=== PATIENT | male | born 1945 | race Caucasian/White ===

== ENCOUNTER 2019-06-25 16:26 | Emergency (ER) | payer MEDICARE ==
[2019-06-25 16:34] VITALS: RESP 18
[2019-06-25 16:44] LABS: Glucose,Whole Blood 128 mg/dL (75-99)
[2019-06-25 16:59] LABS: Basophils # (A) 0.1 k/uL (0-0.2); Basophils % (A) 1 %; Eosinophils # (A) 0.2 k/uL (0-0.7); Eosinophils % (A) 3 %; HCT 41.6 % (39.0-53.0); Lymphocytes # (A) 1.8 k/uL (1.0-4.8); Lymphocytes % (A) 25 %; MCH 31.6 pg (25.0-35.0); MCHC 33.8 g/dL (31.0-37.0); MCV 93.7 fL (80.0-100.0); Mean Platelet Volume 7.8; Monocytes # (A) 0.4 k/uL (0-1.0); Monocytes % (A) 5 %; Neutrophils # (A) 4.4 k/uL (1.3-7.7); Neutrophils % (A) 63 %; Platelet Count 228 k/uL (150-450); RBC 4.44 m/uL (4.30-5.90)
[2019-06-25] MEDS ORDERED: CLOPIDOGREL 75 MG TAB PO STA (17:02)
[2019-06-25] MEDS ORDERED: ASPIRIN 325 MG TAB PO STA (17:02)
--- NOTE | 2019-06-25 17:02 | ED ---
Neuro HPI - General Chief Complaint: Neuro Symptoms/Deficit Stated Complaint: Neuro Sx Time Seen by Provider: 06/25/19 16:35 Source: patient Mode of arrival: ambulatory Limitations: no limitations - History of Present Illness Is the patient presenting with stroke symptoms?: Yes Initial Comments: The patient is a 73-year-old male who presents to the emergency room with reported left leg weakness which started around 3:30 PM. He states he noticed sudden onset of left lower extremity weakness. reports that he was slow to respond. They called a daughter's friend who is a neurologist and recommended that the patient come into the emergency department if she was concerned that he was having a stroke. The patient states that his symptoms completely resolved upon transfer to the hospital. The patient was walking into the ambulance bay when EMS saw them. EMS reports that the patient was ataxic. They assisted him into bed 1. The patient reports that he is completely asymptomatic at this time. He denies any visual changes, slurred speech, facial droop, upper or lower extremity weakness at this time. No history of CVA or TIA in the past. The patient is not on any anticoagulation. He denies any neck pain or stiffness. No fevers or chills. Denies any sick contacts or recent travel. No recent blunt head trauma. There are no other alleviating, precipitating or modifying factors - Related Data Home Medications: Home Medications Medication Instructions Recorded Confirmed Holistic Cardiac 1 tab PO DAILY 06/25/19 06/25/19 Supplement(Unknown) Allergies/Adverse Reactions: Allergies Allergy/AdvReac Type Severity Reaction Status Date / Time No Known Allergies Allergy Unverified 06/25/19 16:44 Review of Systems ROS Statement: Those systems with pertinent positive or pertinent negative responses have been documented in the HPI. ROS Other: All systems not noted in ROS Statement are negative. General Exam Limitations: no limitations General appearance: alert, in no apparent distress Head exam: Present: atraumatic, normocephalic, normal inspection Eye exam: Present: normal appearance, PERRL, EOMI. Absent: scleral icterus, c onjunctival injection, periorbital swelling ENT exam: Present: normal exam, mucous membranes moist Neck exam: Present: normal inspection. Absent: tenderness, meningismus, lymphadenopathy Respiratory exam: Present: normal lung sounds bilaterally. Absent: respiratory distress, wheezes, rales, rhonchi, stridor Cardiovascular Exam: Present: regular rate, normal rhythm, normal heart sounds. Absent: systolic murmur, diastolic murmur, rubs, gallop, clicks GI/Abdominal exam: Present: soft, normal bowel sounds. Absent: distended, tenderness, guarding, rebound, rigid Extremities exam: Present: normal inspection, full ROM, normal capillary refill. Absent: tenderness, pedal edema, joint swelling, calf tenderness Back exam: Present: normal inspection Neurological exam: Present: alert, oriented X3, CN II-XII intact, other (The patient has 5 out of 5 muscle strength in his bilateral upper and lower extremities. No facial droop, slurred speech or confusion. Finger to nose is symmetric bilaterally. Heel to rob is symmetric bilaterally.) Psychiatric exam: Present: normal affect, normal mood Skin exam: Present: warm, dry, intact, normal color. Absent: rash Stroke MDM - Lab Data Result diagrams: 06/25/19 16:45 06/25/19 16:45 Lab Results 06/25/19 06/25/19 06/25/19 Range/Units 16:32 16:45 16:45 WBC 7.0 (3.8-10.6) k/uL RBC 4.44 (4.30-5.90) m/uL Hgb 14.0 (13.0-17.5) gm/dL Hct 41.6 (39.0-53.0) % MCV 93.7 (80.0-100.0) fL MCH 31.6 (25.0-35.0) pg MCHC 33.8 (31.0-37.0) g/dL RDW 15.0 (11.5-15.5) % Plt Count 228 (150-450) k/uL Neutrophils % 63 % Lymphocytes % 25 % Monocytes % 5 % Eosinophils % 3 % Basophils % 1 % Neutrophils # 4.4 (1.3-7.7) k/uL Lymphocytes # 1.8 (1.0-4.8) k/uL Monocytes # 0.4 (0-1.0) k/uL Eosinophils # 0.2 (0-0.7) k/uL Basophils # 0.1 (0-0.2) k/uL PT (9.0-12.0) sec INR (<1.2) APTT (22.0-30.0) sec Sodium 141 (137-145) mmol/L Potassium 4.5 (3.5-5.1) mmol/L Chloride 110 H (98-107) mmol/L Carbon Dioxide 20 L (22-30) mmol/L Anion Gap 11 mmol/L BUN 17 (9-20) mg/dL Creatinine 0.89 (0.66-1.25) mg/dL Est GFR (CKD-EPI)AfAm >90 (>60 ml/min/1.73 sqM) Est GFR (CKD-EPI)NonAf 85 (>60 ml/min/1.73 sqM) Glucose 120 H (74-99) mg/dL POC Glucose (mg/dL) 128 H (75-99) mg/dL POC Glu Refrigerator Repair Technician ID Betito Weston Calcium 9.2 (8.4-10.2) mg/dL Total Bilirubin 0.3 (0.2-1.3) mg/dL AST 26 (17-59) U/L ALT 27 (21-72) U/L Alkaline Phosphatase 54 (38-126) U/L Total Creatine Kinase (55-170) U/L CK-MB (CK-2) (0.0-2.4) ng/mL CK-MB (CK-2) Rel Index Troponin I (0.000-0.034) ng/mL Total Protein 7.0 (6.3-8.2) g/dL Albumin 4.3 (3.5-5.0) g/dL 06/25/19 06/25/19 Range/Units 16:45 16:45 WBC (3.8-10.6) k/uL RBC (4.30-5.90) m/uL Hgb (13.0-17.5) gm/dL Hct (39.0-53.0) % MCV (80.0-100.0) fL MCH (25.0-35.0) pg MCHC (31.0-37.0) g/dL RDW (11.5-15.5) % Plt Count (150-450) k/uL Neutrophils % % Lymphocytes % % Monocytes % % Eosinophils % % Basophils % % Neutrophils # (1.3-7.7) k/uL Lymphocytes # (1.0-4.8) k/uL Monocytes # (0-1.0) k/uL Eosinophils # (0-0.7) k/uL Basophils # (0-0.2) k/uL PT 9.5 (9.0-12.0) sec INR 0.9 (<1.2) APTT 22.4 (22.0-30.0) sec Sodium (137-145) mmol/L Potassium (3.5-5.1) mmol/L Chloride (98-107) mmol/L Carbon Dioxide (22-30) mmol/L Anion Gap mmol/L BUN (9-20) mg/dL Creatinine (0.66-1.25) mg/dL Est GFR (CKD-EPI)AfAm (>60 ml/min/1.73 sqM) Est GFR (CKD-EPI)NonAf (>60 ml/min/1.73 sqM) Glucose (74-99) mg/dL POC Glucose (mg/dL) (75-99) mg/dL POC Glu Refrigerator Repair Technician ID Calcium (8.4-10.2) mg/dL Total Bilirubin (0.2-1.3) mg/dL AST (17-59) U/L ALT (21-72) U/L Alkaline Phosphatase (38-126) U/L Total Creatine Kinase 207 H (55-170) U/L CK-MB (CK-2) 2.4 (0.0-2.4) ng/mL CK-MB (CK-2) Rel Index 1.2 Troponin I <0.012 (0.000-0.034) ng/mL Total Protein (6.3-8.2) g/dL Albumin (3.5-5.0) g/dL - Medical Decision Making Upon arrival the patient is placed into room 1. He is hooked up to continuous pulse ox and rug inspector helper. A thorough history and physical exam was performed. NIH stroke scale is performed and demonstrates a score of 0. Because of the patient's reported symptoms I did activate a code stroke. Onset time is 3:30. Symptoms have completely resolved at this time. Laboratory studies were drawn. The patient was sent over for a CT of his brain as well as CT angiography of his head and neck. A 12-lead EKG was performed. I spoke to Dr. Pennington at 4:45 PM. He agreed to a CT brain without contrast and CT angios of the head and neck. These images were performed here patient was returned to room 1 and continues to have a score of 0 on the NIHSS. At 4:55 PM, I did discuss the case with Dr. Pennington again. He does have concern for a thrombus versus calcification in the basilar artery. Because of this, he did recommend 300 mg of Plavix and 325 mg of aspirin. He recommended the patient be transferred to [facility] for angiography. Results of the laboratory studies were reviewed. I did call [facility] to transfer the patient. I then received a call from the on-call radiologist. 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 I did call and discuss the case with again with Dr. Pennington at 6:15. He states that the treatments will continue to be the same. He does not want the patient heparinized. Patient will continue to be transported to the clinical hospital. Patient was updated, remained in stable condition and was transferred. - EKG Data -: EKG Interpreted by Me 06/25/19 17:01 EKG demonstrates normal sinus rhythm with ventricular rate of 80. ID Interval 170. QRS 90. QTC 445. There is a Q wave in lead 3. There are no acute ST segment elevations. Past Medical History Past Medical History: Hypertension History of Any Multi-Drug Resistant Organisms: None Reported Past Surgical History: Hernia Repair Past Psychological History: No Psychological Hx Reported Smoking Status: Never smoker Past Alcohol Use History: Abuse Past Drug Use History: None Reported Course Vital Signs 06/25/19 06/25/19 06/25/19 16:30 16:35 16:50 Temperature 98.9 F 98.4 F 98.4 F Pulse Rate 81 79 80 Respiratory 18 18 18 Rate Blood Pressure 202/112 202/112 172/116 O2 Sat by Pulse 96 98 97 Oximetry 06/25/19 06/25/19 06/25/19 17:15 17:30 17:45 Temperature Pulse Rate 81 80 80 Respiratory 18 18 18 Rate Blood Pressure 162/83 155/104 148/102 O2 Sat by Pulse 98 98 98 Oximetry 06/25/19 18:00 Temperature Pulse Rate 78 Respiratory 18 Rate Blood Pressure 148/102 O2 Sat by Pulse 98 Oximetry Disposition Clinical Impression: Cerebrovascular accident Disposition: OTHER INSTITUTION NOT DEFINED Condition: Serious Is patient prescribed a controlled substance at d/c from ED?: No Referrals: Kathe Winston MD [Primary Care Provider] - 1-2 days Time of Disposition: 18:23 - Out of Hospital Transfer - Req. Specs Out of Hospital Transfer - Requested Specifics: Neurological ICU
[2019-06-25 17:08] LABS: ALT 27 U/L (21-72); AST 26 U/L (17-59); African American GFR (CKD) >90 (>60 ml/min/1.73 sqM); Albumin 4.3 g/dL (3.5-5.0); Alkaline Phosphatase 54 U/L (38-126); Anion Gap 11 mmol/L; Blood Urea Nitrogen 17 mg/dL (9-20); Calcium 9.2 mg/dL (8.4-10.2); Carbon Dioxide 20 mmol/L (22-30); Chloride 110 mmol/L (98-107); Glucose 120 mg/dL (74-99); Potassium 4.5 mmol/L (3.5-5.1); Sodium 141 mmol/L (137-145); Total Bilirubin 0.3 mg/dL (0.2-1.3)
[2019-06-25 17:10] VITALS: TEMP 98.4
[2019-06-25 17:14] LABS: INR 0.9 (<1.2); Partial Thromboplastin Time 22.4 sec (22.0-30.0); Prothrombin Time 9.5 sec (9.0-12.0)
[2019-06-25 17:18] LABS: Creatine Kinase 207 U/L (55-170)
[2019-06-25 17:31] LABS: Creatine Kinase MB 2.4 ng/mL (0.0-2.4); Troponin I <0.012 ng/mL (0.000-0.034)
[2019-06-25 18:10] VITALS: BP 148/102; PULSE 78
--- NOTE | 2019-06-25 21:51 | CT ---
EXAMINATION TYPE: CT brain wo con for TPA DATE OF EXAM: 06/25/2019 COMPARISON: None HISTORY: CVA CT DLP: 1090.9 mGycm Automated exposure control for dose reduction was used. FINDINGS: No acute intracranial hemorrhage. Scattered periventricular and deep cortical white matter areas of l ow attenuation, likely representing sequela of chronic microangiopathy. No acute loss of wisdom-white m atter differentiation to suggest large territorial infarction. Mild cerebral volume loss with appropriate size and morphology of the ventricular system. No extra-ax ial fluid collections or midline shift of structures. Patent basal cisterns. No depressed or displaced calvarial fracture. Intracranial vascular calcifications. Visualized parana jhon sinuses and temporal bone structures are well aerated. Orbits and skull base are unremarkable. IMPRESSION: 1. No acute intracranial normality. 2. Senescent changes including cerebral volume loss and sequela of chronic microangiopathy.
--- NOTE | 2019-06-25 21:51 | XR ---
EXAMINATION TYPE: XR chest 2V DATE OF EXAM: 06/25/2019 COMPARISON: NONE HISTORY: Weakness, altered mental status TECHNIQUE: Frontal and lateral views of the chest are obtained. FINDINGS: Cardiac and mediastinal silhouette is normal. Retrocardiac opacity favored to represent a hiatal hernia. No airspace consolidation. No pleural effusion or pneumothorax. Moderate degenerative changes throughout the thoracic spine. IMPRESSION: No acute cardiopulmonary process.
--- NOTE | 2019-06-25 21:51 | CT ---
EXAMINATION TYPE: CT angio head neck DATE OF EXAM: 06/25/2019 HISTORY: CVA COMPARISON: Noncontrast CT of head same day CT DLP: 486.6 mGycm. Automated Exposure Control for Dose Reduction was Utilized. TECHNIQUE: CTA scan of the neck is performed with IV Contrast, patient injected with 50cc mL of Isov ue 370, axial images are obtained, coronal and sagittal reformatted images are reviewed. Three-D master nstructed images are created on an independent workstation and reviewed. FINDINGS: CTA Neck: Classic aortic branching with patent ostia. Normal course and caliber of the bilateral common carotid arteries. Calcified plaque at the carotid bulbs without significant stenosis. The cervical internal carotid arteries are tortuous bilaterally. Dissection flap within the right distal cervical internal carotid artery without extension into the petrous portion. Tortuous left cervical internal carotid ar chanelle, otherwise patent. Normal course and caliber of the preforaminal through internal vertebral zelda roque. CT HEAD: Distal internal carotid arteries demonstrate atherosclerotic calcifications of the siphons, otherwise patent. The intradural and basilar arteries are patent. There is no significant stenosis or vessel c utoff visualized within the anterior, middle, or posterior cerebral arteries. No aneurysm or malforma tion. IMPRESSION: Distal right internal carotid artery dissection. The findings were called to Jesi Roper by Raven Sosa D.O. at 6:00 PM on 06/25/2019.
== END 2019-06-25 18:36 | disposition short-term general hospital (02) ==
LOC: EC 16:26
DX: I63.9 Cerebral infarction, unspecified (principal); Z79.899 Other long term (current) drug therapy
CPT/HCPCS: 36415; 93005; 80053; 82550; 82553; 84484; 85025; 85610; 85730; 71046; 70496; 70450; 70498; 99285; G0480; Q9967; 80320